=== PATIENT | male | born 1980 | race Caucasian/White ===

== ENCOUNTER 2024-05-07 16:03 | Emergency (ER) | payer MEDICAID ==
[~2024-05-07] VITALS: Ht 177.8 cm; Wt 86.9 kg
--- OUTSIDE RECORDS SUMMARY | 2024-05-07 16:04 | XMS ---
PreManage Notification: LALO VAZ Security Pediatric Physiatrist Events No recent Security Events currently on file CRITERIA MET - 6 ED Visits in 6 Months - [facility] - 2 Visits in 30 Days CARE PROVIDERS MOOSE HORN [facility] Current PHONE: Unknown MARY GRACE Nurse Radha SILVER PHONE: Unknown Care Guidelines exist for the following facilities: [facility] ( 06/19/2013 ) [facility] ( 05/18/2013 ) [facility] VISIT COUNT (12 MO.) 7 [facility] 2 Gilma Garcia. TOTAL 11 NOTE: Visits indicate total known visits. ED/UCC VISIT TRACKING (12 MO.) 05/07/2024 16:03 GE[facility]ANY Molina [place] TYPE: Emergency COMPLAINT: - SHORTNESS OF BREATH 04/27/2024 10:47 GE[facility] Molina [place] TYPE: Emergency COMPLAINT: - SHORTNESS OF BREATH DIAGNOSES: - Allergy status to narcotic agent - Chronic obstructive pulmonary disease, unspecified - Dependence on renal dialysis - End stage renal disease - Hyperkalemia - Hypertensive chronic kidney disease with stage 5 chronic kidney disease or end stage renal disease - Patient's noncompliance with renal dialysis for other reason - Shortness of breath 04/15/2024 13:34 [facility] TYPE: Emergency DIAGNOSES: - Cellulitis of right lower limb - Chest pain, unspecified - Pneumonia, unspecified organism - Sepsis, unspecified organism - Chest Pain 02/16/2024 18:[facility] DIAGNOSES: - Cellulitis of unspecified part of limb - Cutaneous abscess of limb, unspecified - Sepsis, unspecified organism - Abdominal Pain 02/02/2024 18:40 [facility] DIAGNOSES: - Dialysis (Asymptomatic) - Headache (Adult - New Onset Or New Symptoms) - Hypertension 01/24/2024 14:[facility] DIAGNOSES: - Pain in right leg - Arm Pain - Leg Pain 10/30/2023 13:06 [facility] DIAGNOSES: - Anemia, unspecified - Fluid overload, unspecified - Abnormal Lab 10/28/2023 11:09 [facility] Dorota [facility] TYPE: Emergency DIAGNOSES: - Anemia, unspecified - Dependence on renal dialysis - Hyperkalemia - Abnormal Lab 09/24/2023 15:37 [facility] 08/11/2023 01:56 Gilma Raya RODRIGO TYPE: Emergency DIAGNOSES: - Hyperkalemia - Hypo-osmolality and hyponatremia - Other disorders of electrolyte and fluid balance, not elsewhere classified - Catheter complications - Chest Pain - Shortness of Breath - Vascular Access Problem 06/03/2023 16:48 [facility] Ania Dorota WALLACE TYPE: Emergency DIAGNOSES: - Cellulitis of left lower limb - Hyperkalemia - Leg Wound - x3 L Leg redness INPATIENT VISIT TRACKING (12 MO.) 04/27/2024 14:49 [facility] TYPE: Medical Surgical DIAGNOSES: - Cellulitis of left lower limb - Hyperkalemia - Unspecified open wound, left lower leg, subsequent encounter 04/15/2024 13:34 [facility] Dorota [facility] TYPE: Surgical Services DIAGNOSES: - Acute respiratory failure with hypoxia - Cellulitis of right lower limb - Chest pain, unspecified - Dependence on renal dialysis - End stage renal disease - Essential (primary) hypertension - Pneumonia, unspecified organism - Sepsis, unspecified organism - Severe sepsis without septic shock 02/16/2024 18:51 [facility] Dorota [facility] TYPE: Nephrology DIAGNOSES: - Anemia, unspecified - Bacteremia - Cellulitis of right lower limb - Cellulitis of unspecified part of limb - Cutaneous abscess of limb, unspecified - Dependence on renal dialysis - End stage renal disease - Sepsis, unspecified organism - Spontaneous bacterial peritonitis - Unspecified cirrhosis of liver 09/24/2023 15:37 [facility] Dorota [facility] TYPE: Nephrology DIAGNOSES: - Acidosis, unspecified - Acute posthemorrhagic anemia - Anemia, unspecified - Anuria and oliguria - Bacteremia - Bradycardia, unspecified - Cellulitis of left lower limb - Cellulitis of right lower limb - Dependence on renal dialysis - End stage renal disease - Essential (primary) hypertension - Gastrointestinal hemorrhage, unspecified - Hyperkalemia - Hypotension, unspecified - Iron deficiency - Localized edema - Melena - Nicotine dependence, unspecified, uncomplicated - Non-pressure chronic ulcer of unspecified part of left lower leg with fat layer exposed - Non-pressure chronic ulcer of unspecified part of right lower leg with unspecified severity - Opioid dependence, uncomplicated - Other disorders of electrolyte and fluid balance, not elsewhere classified - Patient's noncompliance with renal dialysis for other reason - Venous insufficiency (chronic) (peripheral) - Altered Mental Status 08/11/2023 05:37 [facility] Dorota [facility] TYPE: Nephrology DIAGNOSES: - Anemia in chronic kidney disease - Bacteremia - Cellulitis of left lower limb - Cellulitis of right lower limb - Cutaneous abscess of left lower limb - Dependence on renal dialysis - End stage renal disease - Hyperkalemia - Infectious gastroenteritis and colitis, unspecified - Localized edema - Non-pressure chronic ulcer of unspecified part of left lower leg with fat layer exposed - Opioid dependence, uncomplicated - Other psychoactive substance dependence, uncomplicated - Other specified forms of tremor - Pain in left shoulder - Pain in right knee - Pain in right shoulder - Patient's noncompliance with renal dialysis for other reason - Patient's noncompliance with renal dialysis for other reason - Pyogenic arthritis, unspecified - Sepsis, unspecified organism - Severe sepsis without septic shock - Streptococcal infection, unspecified site - Tobacco use - Unspecified infection due to central venous catheter, initial encounter - Unspecified infection due to central venous catheter, subsequent encounter - Unspecified kidney failure - Unspecified protein-calorie malnutrition - Unspecified severe protein-calorie malnutrition - Unspecified streptococcus as the cause of diseases classified elsewhere - HYPERKALEMIA [email or web address]
[2024-05-07] MEDS ORDERED: ALBUTEROL/IPRATROPIUM 3 ML NEB ONE (16:06)
[2024-05-07] MEDS ORDERED: ALBUTEROL/IPRATROPIUM 3 ML NEB INH PRN (16:15)
[2024-05-07] MEDS ORDERED: SPIRIVA RESPIMAT4 GM INH (16:16)
[2024-05-07] MEDS ORDERED: COREG12.5 MG PO (16:17)
[2024-05-07] MEDS ORDERED: HYDROCHLOROTH12.5 MG PO (16:17)
[2024-05-07 16:33] LABS: EOSINOPHILS 3.7 % (0-6); HEMATOCRIT 23.8 % (35.0-50.0); HEMOGLOBIN 7.8 g/dL (12.0-18.0); LYMPHOCYTES 14.5 % (24-44); MCH 27.3 (27-36); MCHC 32.9 g/dl (30-36); MCV 83.1 fl (81-99); MONOCYTES 7.1 % (0-12); NEUTROPHILS 72.7 % (39-80); PLATELET COUNT 257 K/uL (140-440); RBC 2.87 M/ul (4.3-5.7); RDW 18.2 (10.5-15.0)
[2024-05-07 16:56] LABS: ALBUMIN 2.8 g/dL (3.4-5.0); ALBUMIN/GLOBULIN RATIO 0.54 (1.1-2.4); BILIRUBIN, TOTAL 0.4 ng/dL (0.2-1.0); BUN/CREATININE RATIO 9.34 (6.0-28.6); CALCIUM 9.2 mg/dL (8.5-10.1); CREATININE, SERUM 15.2 mg/dL (0.70-1.30); MAGNESIUM 2.2 mg/dL (1.8-2.4)
[2024-05-07] MEDS ORDERED: CALCIUM CHLORIDE 1,000 MG/10 ML SYR IV ONE (17:30)
[2024-05-07] MEDS ORDERED: SODIUM BICARBONATE 50 MEQ in DEXTROSE 5% 1,000 ML IV SCH (17:30)
[2024-05-07] MEDS ORDERED: CALCIUM CHLORIDE 1,000 MG in DEXTROSE 5% 100 ML IV ONE (17:30)
[2024-05-07] MEDS ORDERED: ALBUTEROL SULFATE 0.083% 3 ML VIAL INH ONE (17:30)
[2024-05-07] MEDS ORDERED: Insulin Regular, Human 100 UNIT/ML ML IV ONE (17:30)
[2024-05-07] MEDS ORDERED: ALBUTEROL SULFATE 0.5% 2.5 MG/0.5 ML VIAL INH ONE (17:45)
[2024-05-07] MEDS ORDERED: hydrALAZINE HCL 20 MG/ML VIAL IV ONE (19:15)
[2024-05-07 19:27] LABS: ANION GAP 18.9 (7-21); BUN/CREATININE RATIO 9.47 (6.0-28.6); CALCIUM 9.3 mg/dL (8.5-10.1); CREATININE, SERUM 15.3 mg/dL (0.70-1.30)
[2024-05-07 19:28] LABS: POTASSIUM 7.9 mmol/L (3.5-5.1)
[2024-05-07 19:30] VITALS: BP 187/114
--- NOTE | 2024-05-07 20:53 | EKG ---
[facility] [address] [facility] [place] [address] Signed Sinus bradycardia with sinus arrhythmia Septal infarct , age undetermined Abnormal ECG When compared with ECG of 07-MAY-2024 16:23, (Unconfirmed) IA interval has decreased Confirmed by Gerhard Church MD ([id number]) on 05/07/2024 8:53:20 PM Electronically Signed By: GERHARD CHURCH DO 05/07/242052 PATIENT NAME: ТАТЬЯНАLALO Electrocardiogram DATE OF : 76 PHYSICIAN: GERHARD CHURCH DO REPORT #: [id number] REPORT IS CONFIDENTIAL AND NOT TO BE RELEASED WITHOUT AUTHORIZATION
--- NOTE | 2024-05-07 20:53 | EKG ---
[facility] [address] [facility] [place] [address] Signed Sinus rhythm with 1st degree AV block Nonspecific intraventricular block Abnormal ECG Confirmed by Gerhard Church MD ([id number]) on 05/07/2024 8:52:55 PM Electronically Signed By: GERHARD CHURCH DO 05/07/242052 PATIENT NAME: ТАТЬЯНАLALO Electrocardiogram DATE OF : 76 PHYSICIAN: GERHARD CHURCH DO REPORT #: [id number] REPORT IS CONFIDENTIAL AND NOT TO BE RELEASED WITHOUT AUTHORIZATION
== END 2024-05-07 19:30 | disposition short-term general hospital (02) ==
LOC: ED 16:03
PROVIDERS: Emergency Medicine
DX: E87.5 Hyperkalemia (principal); I12.0 Hypertensive chronic kidney disease with stage 5 chronic kidney disease or end stage renal disease; N18.6 End stage renal disease; Z99.2 Dependence on renal dialysis; J44.9 Chronic obstructive pulmonary disease, unspecified; Z88.5 Allergy status to narcotic agent; Z91.030 Bee allergy status; Z79.899 Other long term (current) drug therapy
CPT/HCPCS: 36415; 71045; 80048; 80053; 83735; 84484; 85025; 93005; 93010; 94640; 96374; 96375; 96376; 99285-25; J0360; J1815; J7070

== ENCOUNTER 2024-07-02 08:43 | Emergency (ER) | payer OTHER ==
[~2024-07-02] VITALS: Ht 177.8 cm; Wt 92.5 kg
[~2024-07-02 08:43] MED LIST: COREG12.5 MG PO; HYDROCHLOROTH12.5 MG PO; SPIRIVA RESPIMAT4 GM INH
--- OUTSIDE RECORDS SUMMARY | 2024-07-02 08:44 | XMS ---
PreManage Notification: MEGAN VAZ Security Project Consultant Events No recent Security Events currently on file CRITERIA MET - 6 ED Visits in 6 Months - [facility] - 3 Facilities in 90 Days CARE PROVIDERS [facility]: [facility] FAMILY PHONE: [phone] [facility] PHONE: Unknown MARY GRACE Nurse Radha Current ADRIANNE PHONE: Unknown Care Guidelines exist for the following facilities: [facility] ( 06/19/2013 ) [facility] ( 05/18/2013 ) Andre VIS[facility] (12 MO.) 7 [facility] [address] [facility]. TOTAL 12 NOTE: Visits indicate total known visits. ED/UCC VISIT TRACKING (12 MO.) 07/02/2024 08:44 [facility] Molina [place] TYPE: Emergency COMPLAINT: - SHORTNESS OF BREATH 05/15/2024 19:41 [facility] [place] TYPE: Emergency DIAGNOSES: - Chronic kidney disease, unspecified - Dependence on renal dialysis - Hyperkalemia - Hypertensive urgency - General 05/07/2024 16:03 [facility] Molina [place] TYPE: Emergency COMPLAINT: - SHORTNESS OF BREATH DIAGNOSES: - Allergy status to narcotic agent - Bee allergy status - Chronic obstructive pulmonary disease, unspecified - Dependence on renal dialysis - End stage renal disease - Hyperkalemia - Hypertensive chronic kidney disease with stage 5 chronic kidney disease or end stage renal disease - Other longwall shearer operator (current) drug therapy - Shortness of breath 04/27/2024 10:47 [facility] Molina [place] TYPE: Emergency [...] reason - Shortness of breath 04/15/2024 13:[facility] DIAGNOSES: - Cellulitis of right lower limb - Chest pain, unspecified - Pneumonia, unspecified organism - Sepsis, unspecified organism - Chest Pain 02/16/2024 18:51 [facility]: Emergency DIAGNOSES: - Cellulitis of unspecified part of limb - Cutaneous abscess of limb, unspecified - Sepsis, unspecified organism - Abdominal Pain 02/02/2024 18:40 [facility]: Emergency DIAGNOSES: - Dialysis (Asymptomatic) - Headache (Adult - New Onset Or New Symptoms) - Hypertension 01/24/2024 14:51 [facility]: Emergency DIAGNOSES: - Pain in right leg - Arm Pain - Leg Pain 10/30/2023 13:06 [facility] Dorota W[facility] M[facility] TYPE: Emergency DIAGNOSES: - Anemia, unspecified - Fluid overload, unspecified - Abnormal Lab 10/28/2023 11:09 [facility] Dorota W[facility] M[facility] TYPE: Emergency DIAGNOSES: - Anemia, unspecified - Dependence on renal dialysis - Hyperkalemia - Abnormal Lab 09/24/2023 15:37 [facility] Dorota [facility] M[facility] TYPE: Emergency 08/11/2023 [facility]56 [facility] DIAGNOSES: - Hyperkalemia - Hypo-osmolality and hyponatremia - Other disorders of electrolyte and fluid balance, not elsewhere classified - Catheter complications - Chest Pain - Shortness of Breath - Vascular Access Problem INPATIENT VISIT TRACKING (12 MO.) 05/07/2024 20:13 [email or web address] [place] TYPE: Medical Surgical COMPLAINT: - End stage renal disease DIAGNOSES: - End stage renal disease 04/27/2024 14:49 [email or web address] [place] TYPE: Medical Surgical DIAGNOSES: - Cellulitis of left lower limb - Hyperkalemia - Unspecified open wound, left lower leg, subsequent encounter 04/15/2024 13:34 [facility] Dorota [facility] M[facility] TYPE: Surgical Services DIAGNOSES: - Acute respiratory failure with hypoxia - Cellulitis of right lower limb - Chest pain, unspecified - Dependence on renal dialysis - End stage renal disease - Essential (primary) hypertension - Pneumonia, unspecified organism - Sepsis, unspecified organism - Severe sepsis without septic shock 02/16/2024 18:51 [facility] RODRIGO Barraza TYPE: Nephrology DIAGNOSES: - Anemia, unspecified - Bacteremia - Cellulitis of right lower limb - Cellulitis of unspecified part of limb - Cutaneous abscess of limb, unspecified - Dependence on renal dialysis - End stage renal disease - Sepsis, unspecified organism - Spontaneous bacterial peritonitis - Unspecified cirrhosis of liver 09/24/2023 15:37 [facility] RODRIGO Barraza TYPE: Nephrology DIAGNOSES: - Acidosis, unspecified - [...] (peripheral) - Altered Mental Status 08/11/2023 05:37 [facility] Dorota W[facility]ACE M.[facility] TYPE: Nephrology DIAGNOSES: - [...] cause of diseases classified elsewhere - HYPERKALEMIA [email or web address]
[2024-07-02 09:17] LABS: BASOPHILS 1.1 % (0-2); EOSINOPHILS 5.9 % (0-6); HEMATOCRIT 28.1 % (35.0-50.0); LYMPHOCYTES 12.5 % (24-44); MCH 27.1 (27-36); MCHC 31.9 g/dl (30-36); MONOCYTES 7.4 % (0-12); NEUTROPHILS 73.1 % (39-80); PLATELET COUNT 249 K/uL (140-440); RBC 3.31 M/ul (4.3-5.7); RDW 18.1 (10.5-15.0)
[2024-07-02 09:37] LABS: ALBUMIN 3.1 g/dL (3.4-5.0); ALBUMIN/GLOBULIN RATIO 0.62 (1.1-2.4); ANION GAP 10.1 (7-21); BILIRUBIN, TOTAL 0.4 ng/dL (0.2-1.0); BUN/CREATININE RATIO 6.27 (6.0-28.6); CALCIUM 9.3 mg/dL (8.5-10.1); CREATININE, SERUM 8.61 mg/dL (0.70-1.30); POTASSIUM 7.1 mmol/L (3.5-5.1); PROTEIN, TOTAL 8.1 g/dL (6.4-8.2)
[2024-07-02] MEDS ORDERED: Calcium Gluconate in NS 1,000 MG/50 ML BAG IV ONE ×2 (10:00→10:45)
[2024-07-02] MEDS ORDERED: DEXTROSE 50% 50 ML SYR IV ONE (10:15)
[2024-07-02] MEDS ORDERED: Insulin Regular, Human 100 UNIT/ML ML IV ONE (10:15)
[2024-07-02] MEDS ORDERED: ondansetron HCL 4 MG/2 ML VIAL IV ONE (10:15)
[2024-07-02 10:50] VITALS: BP 193/116
--- NOTE | 2024-07-04 21:13 | EKG ---
[facility] [address] [facility] [place] [address] Signed Normal sinus rhythm Normal ECG When compared with ECG of 07-MAY-2024 17:13, QRS duration has decreased Criteria for Septal infarct are no longer present Confirmed by Malachi Church DO ([id number]) on 07/04/2024 9:13:22 PM Electronically Signed By: MALACHI CHURCH DO 07/04/242112 PATIENT NAME: MEGAN VAZ Electrocardiogram DATE OF : 76 PHYSICIAN: MALACHI CHURCH DO REPORT #: [id number] REPORT IS CONFIDENTIAL AND NOT TO BE RELEASED WITHOUT AUTHORIZATION
== END 2024-07-02 10:50 | disposition short-term general hospital (02) ==
LOC: ED 08:43
PROVIDERS: Emergency Medicine
DX: E87.70 Fluid overload, unspecified (principal); I12.0 Hypertensive chronic kidney disease with stage 5 chronic kidney disease or end stage renal disease; N18.6 End stage renal disease; E87.5 Hyperkalemia; J44.9 Chronic obstructive pulmonary disease, unspecified; Z99.2 Dependence on renal dialysis; Z88.5 Allergy status to narcotic agent; Z91.030 Bee allergy status; Z79.899 Other long term (current) drug therapy
CPT/HCPCS: 36415; 71045; 80053; 85025; 93005; 93010; 96374; 96375; 96376; 99285-25; J1815; J2405

== ENCOUNTER 2024-07-03 00:45 | Emergency (ER) | payer OTHER ==
[~2024-07-03] VITALS: Ht 177.8 cm; Wt 86.2 kg
--- OUTSIDE RECORDS SUMMARY | 2024-07-03 00:46 | XMS ---
PreManage Notification: MEGAN VAZ Security Ed Special Education Teacher Events No recent Security Events currently on file CRITERIA MET - 6 ED Visits in 6 Months - [facility] - 2 Visits in 30 Days - [facility] - 3 Facilities in 90 Days [address] PROVID[address] [facility]: [facility] [employer] PHONE: [phone] MOOSE OHRN [facility] Current PHONE: Unknown MARY GRACE Nurse Radha SILVER PHONE: Unknown Care Guidelines exist for the following facilities: [facility] ( 06/19/2013 ) [facility] ( 05/18/2013 ) Andre VISIT COUNT (12 MO.) 7 [facility] 4 GEOVANY Cid [address] [place] [facility]. TOTAL 13 NOTE: Visits indicate total known visits. ED/UCC VISIT TRACKING (12 MO.) 07/03/2024 00:45 GEOVANY Molina [place] TYPE: Emergency COMPLAINT: - SEIZURE 07/02/2024 08:44 GEOVANY Molina [place] TYPE: Emergency COMPLAINT: - SHORTNESS OF BREATH 05/15/2024 19:41 [facility] [place] TYPE: Emergency DIAGNOSES: - Chronic kidney [...] or end stage renal disease - Other long term care social worker (current) drug therapy - Shortness of breath 04/27/2024 10:[address] [facility] [place] TYPE: Emergency COMPLAINT: - SHORTNESS OF [...] reason - Shortness of breath 04/15/2024 13:34 [facility] DIAGNOSES: - Cellulitis of right lower limb - Chest pain, unspecified - Pneumonia, unspecified organism - Sepsis, unspecified organism - Chest Pain 02/16/2024 18:51 [facility] TYPE: Emergency DIAGNOSES: - Cellulitis of unspecified part of limb - Cutaneous abscess of limb, unspecified - Sepsis, unspecified organism - Abdominal Pain 02/02/2024 18:40 [facility]: Emergency DIAGNOSES: - Dialysis (Asymptomatic) - Headache (Adult - New Onset Or New Symptoms) - Hypertension 01/24/2024 14:51 [facility] Dorota W[facility]ACE M[facility] TYPE: Emergency DIAGNOSES: - Pain [...] - Hyperkalemia - Abnormal Lab 09/24/2023 15:37 [facility] TYPE: Emergency 08/11/2023 01:56 [facility] TYPE: Emergency DIAGNOSES: - Hyperkalemia - Hypo-osmolality and hyponatremia - Other disorders of electrolyte and fluid balance, not elsewhere classified - Catheter complications - Chest Pain - Shortness of Breath - Vascular Access Problem INPATIENT VISIT TRACKING (12 MO.) 05/07/2024 20:13 [facility] [place] TYPE: Medical Surgical COMPLAINT: - End stage renal disease DIAGNOSES: - End stage renal disease 04/27/2024 14:49 [facility] [place] TYPE: Medical Surgical DIAGNOSES: - Cellulitis [...] Severe sepsis without septic shock 02/16/2024 18:51 [facility] Dorota W[facility]ACE M[facility] TYPE: Nephrology DIAGNOSES: - Anemia, unspecified - Bacteremia - Cellulitis of right lower limb - Cellulitis of unspecified part of limb - Cutaneous abscess of limb, unspecified - Dependence on renal dialysis - End stage renal disease - Sepsis, unspecified organism - Spontaneous bacterial peritonitis - Unspecified cirrhosis of liver 09/24/2023 15:37 [facility] TYPE: Nephrology DIAGNOSES: - Acidosis, [...] cause of diseases classified elsewhere - HYPERKALEMIA [email or web address]
[2024-07-03] MEDS ORDERED: KETAMINE HCL 500 MG/5 ML MDV ONE (00:51)
[2024-07-03] MEDS ORDERED: LORazepam 2 MG/ML VIAL IV ONE ×2 (01:00→05:45)
[2024-07-03] MEDS ORDERED: KETAMINE HCL 500 MG/5 ML MDV IM ONE (01:00)
[2024-07-03 01:10] LABS: BASOPHILS 1.1 % (0-2); EOSINOPHILS 5.1 % (0-6); HEMATOCRIT 29.4 % (35.0-50.0); HEMOGLOBIN 9.5 g/dL (12.0-18.0); LYMPHOCYTES 13.3 % (24-44); MCH 27.4 (27-36); MCHC 32.2 g/dl (30-36); MCV 85.1 fl (81-99); MONOCYTES 7.8 % (0-12); NEUTROPHILS 72.7 % (39-80); PLATELET COUNT 252 K/uL (140-440); RBC 3.46 M/ul (4.3-5.7); RDW 17.3 (10.5-15.0)
[2024-07-03] MEDS ORDERED: LORazepam 2 MG/ML VIAL IM ONE (01:15)
[2024-07-03 01:28] LABS: ALBUMIN 3.2 g/dL (3.4-5.0); ALBUMIN/GLOBULIN RATIO 0.56 (1.1-2.4); ALCOHOL, MEDICAL <3 ng/dL (<3); ALKALINE PHOSPHATASE 410 U/L (46-116); ALT (SGPT) 49 U/L (14-59); ANION GAP 19.3 (7-21); AST (SGOT) 39 U/L (15-37); BILIRUBIN, TOTAL 0.5 ng/dL (0.2-1.0); BUN/CREATININE RATIO 4.88 (6.0-28.6); CALCIUM 9.4 mg/dL (8.5-10.1); CARBON DIOXIDE 27 mmol/L (21-32); CHLORIDE 95 mmol/L (98-107); CREATININE, SERUM 5.53 mg/dL (0.70-1.30); GLOMERULAR FILTRATION RATE,EST 12 mL/min (>60); POTASSIUM 5.3 mmol/L (3.5-5.1); PROTEIN, TOTAL 8.9 g/dL (6.4-8.2); UREA NITROGEN 27 mg/dL (7-18)
[2024-07-03 01:40] LABS: PHOSPHORUS, INORGANIC 6.1 mg/dL (2.5-4.9)
[2024-07-03 01:41] LABS: TSH, 3RD GENERATION 13.616 uIU/mL (0.358-3.740)
[2024-07-03] MEDS ORDERED: KETOROLAC TROMETHAMINE 30 MG/ML VIAL IV ONE (01:45)
[2024-07-03] MEDS ORDERED: hydrALAZINE HCL 20 MG/ML VIAL IV ONE (02:15)
[2024-07-03] MEDS ORDERED: DEXTROSE 50% 50 ML SYR IV ONE ×4 (03:15→05:15)
[2024-07-03] MEDS ORDERED: CALCIUM CHLORIDE 1,000 MG/10 ML SYR IV ONE (03:15)
[2024-07-03] MEDS ORDERED: Insulin Regular, Human 100 UNIT/ML ML IV ONE (03:15)
[2024-07-03] MEDS ORDERED: carvediloL 6.25 MG TAB PO ONE (03:45)
[2024-07-03] MEDS ORDERED: METOPROLOL TARTRATE 5 MG/5 ML VIAL IV ONE (03:45)
[2024-07-03 04:13] LABS: BILIRUBIN, URINE NEGATIVE (negative); BLOOD/HGB, URINE LARGE (Negative); KETONE, URINE SMALL (Negative); LEUK ESTERASE, URINE SMALL (negative); NITRITE, URINE POSITIVE (negative)
[2024-07-03] MEDS ORDERED: DEXTROSE 50% 50 ML SYR ONE (04:18)
[2024-07-03 04:20] LABS: RED BLOOD CELLS, URINE >50 /hpf (0-5)
[2024-07-03 04:21] LABS: EPITHELIAL CELLS, URINE SQUAMOUS 1+ /lpf (0-1+)
[2024-07-03 04:23] LABS: BACTERIA, URINE RARE /hpf (negative); CASTS, URINE NONE SEEN \\lpf; CRYSTALS, URINE NONE SEEN (0-1+); WHITE BLOOD CELLS, URINE 0-1 /HPF (0-5)
[2024-07-03 04:24] LABS: COLLECTION TYPE, URINE CLEAN CATCH; REFLEX CULTURE, URINE No (No)
[2024-07-03 04:28] LABS: AMPHETAMINES, URINE NEGATIVE (NEGATIVE); BARBITURATES, URINE NEGATIVE (NEGATIVE); BENZODIAZEPINE, URINE NEGATIVE (NEGATIVE); BUPRENORPHINE, URINE NEGATIVE (NEGATIVE); CANNABINOID, URINE POSITIVE (NEGATIVE); COCAINE, URINE NEGATIVE (NEGATIVE); ECSTASY, URINE NEGATIVE (NEGATIVE); FENTANYL, URINE NEGATIVE (NEGATIVE); METHADONE, URINE NEGATIVE (NEGATIVE); OPIATES, URINE NEGATIVE (NEGATIVE); OXYCODONE, URINE NEGATIVE (NEGATIVE); PHENCYCLIDINE, URINE NEGATIVE (NEGATIVE)
[2024-07-03] MEDS ORDERED: levETIRAcetam 500 MG/5 ML VIAL IV ONE (04:30)
[2024-07-03] MEDS ORDERED: ACETAMINOPHEN 500 MG TAB PO ONE (05:00)
[2024-07-03 05:43] VITALS: BP 163/113
--- NOTE | 2024-07-04 21:14 | EKG ---
[facility] [address] [facility] [place], [place] [address] Signed Normal sinus rhythm Normal ECG When compared with ECG of 02-JUL-2024 09:14, (Unconfirmed) No significant change was found Confirmed by Malachi Church DO ([id number]) on 07/04/2024 9:14:32 PM Electronically Signed By: MALACHI CHURCH DO 07/04/242113 PATIENT NAME: MEGAN VAZ Electrocardiogram DATE OF : 76 PHYSICIAN: MALACHI CHURCH DO REPORT #: [id number] REPORT IS CONFIDENTIAL AND NOT TO BE RELEASED WITHOUT AUTHORIZATION
== END 2024-07-03 05:45 | disposition short-term general hospital (02) ==
LOC: ED 00:45
PROVIDERS: Internal Medicine
DX: R56.9 Unspecified convulsions (principal); I12.0 Hypertensive chronic kidney disease with stage 5 chronic kidney disease or end stage renal disease; N18.6 End stage renal disease; J44.9 Chronic obstructive pulmonary disease, unspecified; Z99.2 Dependence on renal dialysis; Z91.030 Bee allergy status; Z88.5 Allergy status to narcotic agent; Z79.899 Other long term (current) drug therapy
CPT/HCPCS: 36415; 51701; 51798; 70450; 71045; 80053; 80307; 81001; 83690; 83735; 84100; 84443; 84484; 85025; 93005; 93010; 99285-25; G0480; J0360; J1815; J1953; J2060; J3490

== ENCOUNTER 2024-07-19 13:36 | Emergency (ER) | payer OTHER ==
[~2024-07-19] VITALS: Ht 177.8 cm; Wt 89.8 kg
[2024-07-19] MEDS ORDERED: TRANEXAMIC ACID 1,000 MG/10 ML AMP TOP ONE (14:00)
[2024-07-19 14:38] LABS: BASOPHILS 1.8 % (0-2); EOSINOPHILS 5.1 % (0-6); HEMATOCRIT 30.3 % (35.0-50.0); HEMOGLOBIN 9.9 g/dL (12.0-18.0); LYMPHOCYTES 21.1 % (24-44); MCH 27.8 (27-36); MCHC 32.7 g/dl (30-36); MCV 84.9 fl (81-99); MONOCYTES 12.2 % (0-12); NEUTROPHILS 59.8 % (39-80); PLATELET COUNT 216 K/uL (140-440); RBC 3.57 M/ul (4.3-5.7); RDW 19.2 (10.5-15.0)
[2024-07-19 14:48] LABS: ALBUMIN 2.6 g/dL (3.4-5.0); ALBUMIN/GLOBULIN RATIO 0.6 (1.1-2.4); ANION GAP 11.6 (7-21); BILIRUBIN, TOTAL 0.4 ng/dL (0.2-1.0); BUN/CREATININE RATIO 7.87 (6.0-28.6); CALCIUM 9.3 mg/dL (8.5-10.1); CREATININE, SERUM 5.97 mg/dL (0.70-1.30); POTASSIUM 5.6 mmol/L (3.5-5.1); PROTEIN, TOTAL 6.9 g/dL (6.4-8.2)
[2024-07-19 17:20] VITALS: BP 169/101
== END 2024-07-19 17:22 | disposition left against medical advice (07) ==
LOC: ED 13:36
PROVIDERS: Internal Medicine
DX: T82.42XA Displacement of vascular dialysis catheter, initial encounter (principal); Y71.8 Miscellaneous cardiovascular devices associated with adverse incidents, not elsewhere classified; I12.0 Hypertensive chronic kidney disease with stage 5 chronic kidney disease or end stage renal disease; N18.6 End stage renal disease; J44.9 Chronic obstructive pulmonary disease, unspecified; Z53.29 Procedure and treatment not carried out because of patient's decision for other reasons; Z99.2 Dependence on renal dialysis; Z88.5 Allergy status to narcotic agent; Z91.030 Bee allergy status; Z79.899 Other long term (current) drug therapy
CPT/HCPCS: 36415; 71045; 80053; 85025; 99284-25

== ENCOUNTER 2024-08-02 00:39 | Emergency (ER) | payer OTHER ==
[~2024-08-02] VITALS: Ht 177.8 cm; Wt 84.4 kg
--- OUTSIDE RECORDS SUMMARY | 2024-08-02 00:40 | XMS ---
PreManage Notification: MEGAN VAZ Security Project Construction Assistant Manager Events No recent Security Events currently on file CRITERIA MET - 6 ED Visits in 6 Months - [facility] - 2 Visits in 30 Days - [facility] - 3 Facilities in 90 Days CARE PROVIDERS [facility]: [facility] [employer] PHONE: [phone] MOOSE HORN [facility] Current PHONE: Unknown MARY GRACE Nurse Radha SILVER PHONE: Unknown Care Guidelines exist for the following facilities: [facility] ( 06/19/2013 ) [facility] ( 05/18/2013 ) Andre VISIT [facility] (12 MO.) [facility] GE[facility] Lugo [address] [place] [id number] [address] [facility] TOTAL 18 NOTE: Visits indicate total known visits. ED/UCC VISIT TRACKING (12 MO.) 08/02/2024 00:40 GEOVANY Molina [place] TYPE: Emergency COMPLAINT: - LEG PAIN 07/21/2024 13:32 [facility] [place] TYPE: Emergency DIAGNOSES: - Dependence on renal dialysis - End stage renal disease - Hyperkalemia - NEEDS A CHEST CATHETER 07/19/2024 13:36 GEOVANY Molina [place] TYPE: Emergency COMPLAINT: - CHEST INJURY DIAGNOSES: - Allergy status to narcotic agent - Bee allergy status - Chronic obstructive pulmonary disease, unspecified - Dependence on renal dialysis - Displacement of vascular dialysis catheter, initial encounter - End stage renal disease - Hypertensive chronic kidney disease with stage 5 chronic kidney disease or end stage renal disease - Miscellaneous cardiovascular devices associated with adverse incidents, not elsewhere classified - Other group home (current) drug therapy - Procedure and treatment not carried out because of patient's decision for other reasons 07/17/2024 14:33 [facility] [place] TYPE: Emergency DIAGNOSES: - End stage renal disease - Fluid overload, unspecified - Opioid dependence, uncomplicated - medication request 07/03/2024 08:23 [facility] TYPE: Emergency COMPLAINT: - EMS DIAGNOSES: - Unspecified convulsions - Seizure - Seizures 07/03/2024 00:45 GEOVANY Molina [place] TYPE: Emergency COMPLAINT: - SEIZURE DIAGNOSES: - Allergy status to narcotic agent - Bee allergy status - Chronic obstructive pulmonary disease, unspecified - Dependence on renal dialysis - End stage renal disease - Hypertensive chronic kidney disease with stage 5 chronic kidney disease or end stage renal disease - Other group home (current) drug therapy - Unspecified convulsions 07/02/2024 08:44 GEOVANY Molina [place] TYPE: Emergency COMPLAINT: - SHORTNESS OF BREATH DIAGNOSES: - Allergy status to narcotic agent - Bee allergy status - Chronic obstructive pulmonary disease, unspecified - Dependence on renal dialysis - End stage renal disease - Fluid overload, unspecified - Hyperkalemia - Hypertensive chronic kidney disease with stage 5 chronic kidney disease or end stage renal disease - Other group home (current) drug therapy - Shortness of breath 05/15/2024 19:41 [facility] [place] TYPE: Emergency DIAGNOSES: - Chronic [...] or end stage renal disease - Other group home (current) drug therapy - Shortness of breath [...] reason - Shortness of breath 04/15/2024 13:34 [facility] RODRIGO Barraza TYPE: Emergency DIAGNOSES: - Cellulitis of right lower limb - Chest pain, unspecified - Pneumonia, unspecified organism - Sepsis, unspecified organism - Chest Pain 02/16/2024 18:51 [facility] DIAGNOSES: - Cellulitis of unspecified part of limb - Cutaneous abscess of limb, unspecified - Sepsis, unspecified organism - Abdominal Pain 02/02/2024 18:40 [facility] TYPE: Emergency DIAGNOSES: - Dialysis (Asymptomatic) - Headache (Adult - New Onset Or New Symptoms) - Hypertension 01/24/2024 14:51 [facility] RODRIGO Barraza TYPE: Emergency DIAGNOSES: - Pain in right leg - Arm Pain - Leg Pain 10/30/2023 13:06 [facility] Dorota [facility] TYPE: Emergency DIAGNOSES: - Anemia, unspecified - Fluid overload, unspecified - Abnormal Lab 10/28/2023 11:09 [facility] Dorota [facility] TYPE: Emergency DIAGNOSES: - Anemia, unspecified - Dependence on renal dialysis - Hyperkalemia - Abnormal Lab 09/24/2023 15:37 [facility] Dorota [facility] TYPE: Emergency 08/11/2023 01:56 [facility] [facility]: Emergency DIAGNOSES: - Hyperkalemia - Hypo-osmolality and hyponatremia - Other disorders of electrolyte and fluid balance, not elsewhere classified - Catheter complications - Chest Pain - Shortness of Breath - Vascular Access Problem INPATIENT VISIT TRACKING (12 MO.) 07/21/2024 13:32 [facility] [place] TYPE: Medical Surgical DIAGNOSES: - Dependence on renal dialysis - End stage renal disease - Hyperkalemia 07/03/2024 08:38 [facility] TYPE: General Medicine COMPLAINT: - EMS DIAGNOSES: - Bacteremia - Essential (primary) hypertension - Localized edema - Other specified abnormal findings of blood chemistry - Unspecified convulsions - Unspecified convulsions 05/07/2024 20:13 [facility] [place] TYPE: Medical Surgical COMPLAINT: - End stage renal disease DIAGNOSES: - End stage renal disease 04/27/2024 14:49 [facility] [place] TYPE: Medical Surgical DIAGNOSES: - Cellulitis of left lower limb - Hyperkalemia - Unspecified open wound, left lower leg, subsequent encounter 04/15/2024 13:34 [facility] TYPE: Surgical Services DIAGNOSES: - Acute respiratory failure with hypoxia - Cellulitis of right lower limb - Chest pain, unspecified - Dependence on renal dialysis - End stage renal disease - Essential (primary) hypertension - Pneumonia, unspecified organism - Sepsis, unspecified organism - Severe sepsis without septic shock 02/16/2024 18:51 [facility] TYPE: Nephrology DIAGNOSES: - Anemia, unspecified - Bacteremia - Cellulitis of right lower limb - Cellulitis of unspecified part of limb - Cutaneous abscess of limb, unspecified - Dependence on renal dialysis - End stage renal disease - Sepsis, unspecified organism - Spontaneous bacterial peritonitis - Unspecified cirrhosis of liver 09/24/2023 15:37 [facility] Dorota [facility] TYPE: Nephrology DIAGNOSES: - [...] (peripheral) - Altered Mental Status 08/11/2023 05:37 [facility] Dorota [facility] M[facility] TYPE: Nephrology DIAGNOSES: - [...] cause of diseases classified elsewhere - HYPERKALEMIA [email or web address]
[2024-08-02] MEDS ORDERED: AMLODIPINE BESY10 MG (00:56)
[2024-08-02] MEDS ORDERED: LISINOPRIL20 MG (00:56)
[2024-08-02] MEDS ORDERED: HEParin SOD (PORCINE) 500 UNIT/5 ML ML IV ONE ×2 (01:00)
[2024-08-02] MEDS ORDERED: hydrALAZINE HCL 20 MG/ML VIAL IM ONE (01:30)
[2024-08-02 01:44] LABS: BASOPHILS 0.8 % (0-2); EOSINOPHILS 4.2 % (0-6); HEMATOCRIT 26.5 % (35.0-50.0); HEMOGLOBIN 8.7 g/dL (12.0-18.0); LYMPHOCYTES 7.2 % (24-44); MCH 27.6 (27-36); MCHC 32.7 g/dl (30-36); MCV 84.4 fl (81-99); MONOCYTES 5.3 % (0-12); NEUTROPHILS 82.5 % (39-80); PLATELET COUNT 294 K/uL (140-440); RBC 3.14 M/ul (4.3-5.7); RDW 18.4 (10.5-15.0)
[2024-08-02] MEDS ORDERED: hydrALAZINE HCL 20 MG/ML VIAL IV ONE (01:45)
[2024-08-02 02:08] LABS: MAGNESIUM 2.3 mg/dL (1.8-2.4)
[2024-08-02 02:24] LABS: ALBUMIN/GLOBULIN RATIO 0.53 (1.1-2.4); BILIRUBIN, TOTAL 0.5 mg/dL (0.2-1.0); BUN/CREATININE RATIO 6.19 (6.0-28.6); CALCIUM 8.4 mg/dL (8.5-10.1); CREATININE, SERUM 17.1 mg/dL (0.70-1.30); PROTEIN, TOTAL 8.7 g/dL (6.4-8.2)
[2024-08-02 02:26] LABS: PHOSPHORUS, INORGANIC 13.9 mg/dL (2.5-4.9)
[2024-08-02 02:28] LABS: ANION GAP 25.4 (7-21)
[2024-08-02] MEDS ORDERED: DEXTROSE 50% 50 ML SYR IV ONE ×3 (02:30→04:30)
[2024-08-02 02:31] LABS: POTASSIUM 7.4 mmol/L (3.5-5.1)
[2024-08-02] MEDS ORDERED: DEXTROSE 5% - LACTATED RINGERS 1,000 ML IV SCH (02:45)
[2024-08-02] MEDS ORDERED: ALBUTEROL SULFATE 0.5% 2.5 MG/0.5 ML VIAL INH ONE (02:45)
[2024-08-02] MEDS ORDERED: CALCIUM GLUCONATE 1,000 MG/10 ML VIAL IV ONE (02:45)
[2024-08-02] MEDS ORDERED: Insulin Regular, Human 100 UNIT/ML ML IV ONE (02:45)
[2024-08-02] MEDS ORDERED: SODIUM ZIRCONIUM CYCLOSILICATE 10 GM PACK PO ONE (02:45)
[2024-08-02 03:44] LABS: ANION GAP 24.6 (7-21); BUN/CREATININE RATIO 6.09 (6.0-28.6); CALCIUM 8.7 mg/dL (8.5-10.1); CREATININE, SERUM 17.39 mg/dL (0.70-1.30); POTASSIUM 5.6 mmol/L (3.5-5.1)
[2024-08-02] MEDS ORDERED: GLUCAGON,HUMAN RECOMBINANT 1 MG/ML VIAL IV ONE (04:30)
[2024-08-02] MEDS ORDERED: NALOXONE HCL 0.4 MG SYR IV ONE (04:45)
[2024-08-02 05:05] VITALS: BP 168/88
[2024-08-02] MEDS ORDERED: CEPHALEXIN500 M1 PO (05:46)
--- NOTE | 2024-08-03 12:56 | EKG ---
[facility] [address] [facility] [place] [address] Signed Normal sinus rhythm Left axis deviation Nonspecific intraventricular conduction delay Minimal voltage criteria for LVH, may be normal variant ( Sokolow-Carranza ) Abnormal ECG When compared with ECG of 03-JUL-2024 01:13, QRS duration has increased Confirmed by Malachi Crocker DO ([id number]) on 08/03/2024 12:56:09 PM Electronically Signed By: MALACHI CROCKER DO 08/03/24 1256 PATIENT NAME: MEGAN VAZ Electrocardiogram DATE OF : 76 PHYSICIAN: MALACHI CROCKER DO REPORT #: [id number] REPORT IS CONFIDENTIAL AND NOT TO BE RELEASED WITHOUT AUTHORIZATION
== END 2024-08-02 05:05 | disposition home or self-care (01) ==
LOC: ED 00:39
PROVIDERS: Family Medicine
DX: I12.0 Hypertensive chronic kidney disease with stage 5 chronic kidney disease or end stage renal disease (principal); N18.6 End stage renal disease; E87.5 Hyperkalemia; J44.9 Chronic obstructive pulmonary disease, unspecified; Z99.2 Dependence on renal dialysis; Z91.158 Patient's noncompliance with renal dialysis for other reason; Z88.5 Allergy status to narcotic agent; Z91.030 Bee allergy status; Z88.6 Allergy status to analgesic agent; Z79.899 Other long term (current) drug therapy
CPT/HCPCS: 36415; 80048; 80053; 83735; 83880; 84100; 85025; 93005; 93010; 94644; 96361; 96374; 96375; 96376; 99284-25; J0360; J0612; J1610; J1815; J2310; J7121